=== PATIENT | female | born 1945 | race Caucasian/White ===

== ENCOUNTER 2018-04-29 12:17 | Emergency (ER) | payer OTHER, MEDICARE, BC ==
[~2018-04-29] VITALS: Ht 160 cm; Wt 83.0 kg
[~2018-04-29 12:17] MED LIST: ACET500 PO; ASCO1ER PO; ASPI81CH PO; ASPI81EC PO; ASPIRIN; CHOL10002 PO; DOCU100 PO; EFFEXOR-XR; FERROUS SULFATE PO; FISH OIL PO; FURO20 PO; INSDET100 SC; INSDET100 SQ; INSUAS7030 SC; INSUASPI; INSUASPI SC; IRON; IRON PO; LAMICTAL; LAMO100 PO; LAMOTRIGINE OD100 MG PO; LEVEMIR INSULIN; LEVOTHYROXINE; LEVSOD100 PO; LEVSOD112 PO; LEVSOD200 PO; LEVSOD88 PO; LISI5 PO; LISINOPRIL; LISINOPRIL PO; LOVAZA; Lamictal150 MG PO; METF500 PO; METFORMIN; METO25ER PO; MULVITA PO; Metoprolol Succ25 MG PO; NAPR220 PO; NAPROXEN; NOVOLOG INSULIN; Novolog Fl100 UNIT/1 SC; OLAN10 PO; OMEG1CAP30 PO; OMEP20ER PO; OMEPRAZOLE MAGN20 MG PO; OXYACE5T PO; PIOG30 PO; PRAV20 PO; RAME8; RAME8 PO; TYLENOL PO; VENL75ER PO; VITAMIN D; VITAMIN D PO; VITAMIN D32000 UNIT PO; [UNRECOGNIZED DRUG - OTHER]; [UNRECOGNIZED DRUG - OTHER] PO
[2018-04-29 14:10] LABS: BASOPHILS ABSOLUTE AUTO 0.03 K/mm3 (0.00-0.23); BASOPHILS PERCENT AUTO 0 % (0-2); EOSINOPHILS ABSOLUTE AUTO 0.26 K/mm3 (0.00-0.68); EOSINOPHILS PERCENT AUTO 4 % (0-6); Hematocrit 32.9 % (33.0-51.0); Hemoglobin 10.8 g/dL (11.5-16.0); IMMATURE GRAN ABSOLUTE AUTO 0.04 K/mm3 (0.00-0.10); IMMATURE GRAN PERCENT AUTO 1 % (0-1); LYMPHOCYTES ABSOLUTE AUTO 1.24 K/mm3 (0.84-5.20); LYMPHOCYTES PERCENT AUTO 18 % (21-46); MONOCYTES ABSOLUTE AUTO 0.31 K/mm3 (0.16-1.47); MONOCYTES PERCENT AUTO 5 % (4-13); Mean Corpuscular HGB 33.3 pg (26.0-34.0); Mean Corpuscular HGB Conc 32.8 g/dL (31.5-36.5); Mean Corpuscular Volume 102 fL (80-100); NEUTROPHILS ABSOLUTE AUTO 5.05 K/mm3 (1.96-9.15); NEUTROPHILS PERCENT AUTO 73 % (41-73); Platelet Count 87 K/mm3 (150-400); RDW Coefficient Variation 13.1 % (11.7-14.2); RDW Standard Deviation 48.9 fL (35.1-46.3); Red Blood Cell Count 3.24 M/mm3 (3.80-5.20); White Blood Cell Count 6.93 K/mm3 (4.00-11.30)
[2018-04-29 14:17] LABS: International Normalized Ratio 1.18
[2018-04-29 14:27] LABS: Alanine Aminotransfer (ALT/SGP 32 U/L (12-78); Albumin, Blood 2.9 g/dL (3.4-5.0); Albumin/Globulin Ratio 0.9 (0.8-1.8); Alk Phos 126 U/L (50-136); Anion Gap 6 mmol/L (6-16); Aspartate Aminotrans (AST/SGOT 41 U/L (12-37); Bilirubin, Total 0.8 mg/dL (0.1-1.0); Blood Urea Nitrogen 16 mg/dL (8-24); Bun/Creatinine Ratio 21.2 (12.0-20.0); CO2, Blood 28 mmol/L (21-32); Calcium, Blood 8.6 mg/dL (8.5-10.1); Chloride, Blood 109 mmol/L (98-108); Creatinine, Blood 0.76 mg/dL (0.40-1.00); Globulin, Blood 3.4 g/dL (2.2-4.0); Glomerular Filtration Rate >60 (60-); Glucose, Blood 81 mg/dL (70-99); Potassium, Blood 3.8 mmol/L (3.5-5.5); Sodium, Blood 143 mmol/L (136-145); Total Protein, Blood 6.3 g/dL (6.4-8.2)
== END 2018-04-29 15:35 | disposition home or self-care (01) ==
LOC: ER 12:17
PROVIDERS: Emergency Medicine
DX: S09.90XA Unspecified injury of head, initial encounter (principal); S20.212A Contusion of left front wall of thorax, initial encounter; E11.40 Type 2 diabetes mellitus with diabetic neuropathy, unspecified; E03.9 Hypothyroidism, unspecified; F31.9 Bipolar disorder, unspecified; J45.909 Unspecified asthma, uncomplicated; I10 Essential (primary) hypertension; G47.30 Sleep apnea, unspecified; M19.90 Unspecified osteoarthritis, unspecified site; Z88.8 Allergy status to other drugs, medicaments and biological substances; Z79.4 Long term (current) use of insulin; Z79.899 Other long term (current) drug therapy; V47.5XXA Car driver injured in collision with fixed or stationary object in traffic accident, initial encounter
CPT/HCPCS: 70450; 71046; 80053; 85025; 85610; 93005; 93010; 99285-25

== ENCOUNTER 2019-04-19 11:40 | Emergency (ER) | payer MEDICARE, BC ==
[~2019-04-19] VITALS: Ht 160 cm; Wt 76.7 kg
[2019-04-19] MEDS ORDERED: Norco 5-325 Ta1 EACH PO (13:29)
== END 2019-04-19 13:37 | disposition home or self-care (01) ==
LOC: ER 11:40
DX: S70.02XA Contusion of left hip, initial encounter (principal); E11.40 Type 2 diabetes mellitus with diabetic neuropathy, unspecified; I10 Essential (primary) hypertension; E03.9 Hypothyroidism, unspecified; F31.9 Bipolar disorder, unspecified; J45.909 Unspecified asthma, uncomplicated; Z88.8 Allergy status to other drugs, medicaments and biological substances; Z79.899 Other long term (current) drug therapy; Z79.4 Long term (current) use of insulin; Z79.82 Long term (current) use of aspirin; W18.30XA Fall on same level, unspecified, initial encounter
CPT/HCPCS: 73502; 99283-25

== ENCOUNTER 2021-09-01 21:08 | Emergency (ER) | payer MEDICARE, BC ==
[~2021-09-01] VITALS: Ht 160 cm; Wt 53.5 kg
[~2021-09-01 21:08] MED LIST changes: +Norco 5-325 Ta1 EACH PO
[2021-09-01 22:03] LABS: BASOPHILS ABSOLUTE AUTO 0.03 K/mm3 (0.00-0.23); BASOPHILS PERCENT AUTO 1 % (0-2); EOSINOPHILS PERCENT AUTO 3 % (0-6); Hematocrit 32.3 % (33.0-51.0); IMMATURE GRAN ABSOLUTE AUTO 0.01 K/mm3 (0.00-0.10); IMMATURE GRAN PERCENT AUTO 0 % (0-1); LYMPHOCYTES ABSOLUTE AUTO 0.65 K/mm3 (0.84-5.20); LYMPHOCYTES PERCENT AUTO 21 % (21-46); MONOCYTES ABSOLUTE AUTO 0.16 K/mm3 (0.16-1.47); MONOCYTES PERCENT AUTO 5 % (4-13); Mean Corpuscular HGB 34.5 pg (26.0-34.0); Mean Corpuscular HGB Conc 34.1 g/dL (31.5-36.5); Mean Corpuscular Volume 101 fL (80-100); Mean Platelet Volume 11.9 fL (9.1-12.4); NEUTROPHILS ABSOLUTE AUTO 2.12 K/mm3 (1.96-9.15); NEUTROPHILS PERCENT AUTO 69 % (41-73); Platelet Count 52 K/mm3 (150-400); RDW Coefficient Variation 13.3 % (11.7-14.2); RDW Standard Deviation 49.6 fL (35.1-46.3); Red Blood Cell Count 3.19 M/mm3 (3.80-5.20); White Blood Cell Count 3.07 K/mm3 (4.00-11.30)
[2021-09-01 22:21] LABS: Albumin, Blood 3.1 g/dL (3.4-5.0); Bilirubin, Total 0.9 mg/dL (0.1-1.0); Bun/Creatinine Ratio 27.3 (12.0-20.0); Calcium, Blood 8.6 mg/dL (8.5-10.1); Creatinine, Blood 0.81 mg/dL (0.40-1.00); Globulin, Blood 3.2 g/dL (2.2-4.0); Magnesium, Blood 1.1 mg/dL (1.6-2.4); Potassium, Blood 4.1 mmol/L (3.5-5.5); Total Protein, Blood 6.3 g/dL (6.4-8.2)
[2021-09-02 00:08] LABS: Source, Urine Clean Catch
[2021-09-02 00:11] LABS: Bilirubin, Urine Neg (Neg); Blood, Urine Neg (Neg); Glucose Qualitative, Urine Neg (Neg); Ketones, Urine Neg (Neg); Leukocyte Esterase, Urine 3+ (Neg); Nitrite, Urine Neg (Neg); Protein, Urine 1+ (Neg); Specific Gravity, Urine 1.005 (1.003-1.022); Urobilinogen, Urine NORM (Normal)
[2021-09-02 00:16] LABS: Appearance, Urine Clear (Clear); Color, Urine Yellow (P-Yellow)
[2021-09-02 00:26] LABS: Amorphous Light (0-Heavy); Bacteria Few /hpf; Red Blood Cells, Urine Not Seen /hpf (0-2); Squamous Epithelial Cells Few /hpf (Few)
[2021-09-02] MEDS ORDERED: CEFD300 PO ×2 (00:47→01:05)
== END 2021-09-02 01:14 | disposition home or self-care (01) ==
LOC: ER 21:08
PROVIDERS: Student in an Organized Health Care Education/Training Program
DX: A08.4 Viral intestinal infection, unspecified (principal); N39.0 Urinary tract infection, site not specified; E83.42 Hypomagnesemia; E03.9 Hypothyroidism, unspecified; F32.A Depression, unspecified; J45.909 Unspecified asthma, uncomplicated; E11.42 Type 2 diabetes mellitus with diabetic polyneuropathy; I10 Essential (primary) hypertension; Z79.4 Long term (current) use of insulin; Z79.82 Long term (current) use of aspirin; Z79.899 Other long term (current) drug therapy; Z88.8 Allergy status to other drugs, medicaments and biological substances
CPT/HCPCS: 36415; 80053; 81001; 82140; 82947; 83735; 85025; 93005; 93010; A9270; J3475; J7030

== ENCOUNTER 2022-05-14 22:37 | Emergency (ER) | payer MEDICARE, BC ==
[~2022-05-14] VITALS: Ht 160 cm; Wt 77.1 kg
[~2022-05-14 22:37] MED LIST changes: +CEFD300 PO
[2022-05-15] MEDS ORDERED: Morphine Sulfat15 MG PO (02:40)
== END 2022-05-15 03:20 | disposition home or self-care (01) ==
LOC: ER 22:37
DX: M25.551 Pain in right hip (principal); W19.XXXA Unspecified fall, initial encounter; I10 Essential (primary) hypertension; E03.9 Hypothyroidism, unspecified; J45.909 Unspecified asthma, uncomplicated; E11.40 Type 2 diabetes mellitus with diabetic neuropathy, unspecified; Z96.641 Presence of right artificial hip joint; Z88.8 Allergy status to other drugs, medicaments and biological substances; Z79.899 Other long term (current) drug therapy; Z79.4 Long term (current) use of insulin
CPT/HCPCS: 72192; 73502; 96372; 99284-25; A9270; J1885

== ENCOUNTER → 2022-07-12 | Outpatient (CLI) | payer MEDICARE, BC ==
[~2022-07-12] MED LIST changes: +Morphine Sulfat15 MG PO
[2022-07-12 15:09] LABS: Source, Urine Clean Catch
[2022-07-12 16:51] LABS: Appearance, Urine Clear (Clear); Bilirubin, Urine Neg (Neg); Blood, Urine Neg (Neg); Color, Urine Yellow (P-Yellow); Glucose Qualitative, Urine Neg (Neg); Ketones, Urine Neg (Neg); Leukocyte Esterase, Urine Neg (Neg); Nitrite, Urine Neg (Neg); Protein, Urine 2+ (Neg); Specific Gravity, Urine 1.005 (1.003-1.022); Urobilinogen, Urine NORM (Normal)
[2022-07-12 17:02] LABS: Bacteria Few /hpf; Red Blood Cells, Urine 0-2 /hpf (0-2); Squamous Epithelial Cells Mod /hpf (Few); Transitional Epithelial Cells Rare /hpf (0-Rare)
== END | disposition home or self-care (01) ==
LOC: LAB SHORT 15:05 → LAB 15:05 → LAB FUT 07-11 12:50
PROVIDERS: Internal Medicine
DX: N39.0 Urinary tract infection, site not specified (principal)
CPT/HCPCS: 81001

== ENCOUNTER 2022-11-04 09:27 | Inpatient (IN) | payer MEDICARE, BC ==
[~2022-11-04] VITALS: Ht 160 cm; Wt 69.8 kg
[2022-11-04 10:19] LABS: Hemoglobin 9.7 g/dL (11.5-16.0); Mean Corpuscular HGB 32.3 pg (26.0-34.0); Mean Corpuscular HGB Conc 32.3 g/dL (31.5-36.5); Mean Corpuscular Volume 100 fL (80-100); Mean Platelet Volume 12.6 fL (9.1-12.4); RDW Coefficient Variation 14.9 % (11.7-14.2); RDW Standard Deviation 53.7 fL (35.1-46.3); White Blood Cell Count 1.61 K/mm3 (4.00-11.30)
[2022-11-04 10:23] LABS: Platelet Count 50 K/mm3 (150-400)
[2022-11-04 10:37] LABS: Albumin, Blood 2.8 g/dL (3.4-5.0); Albumin/Globulin Ratio 0.7 (0.8-1.8); Bilirubin, Total 1.4 mg/dL (0.1-1.0); Bun/Creatinine Ratio 25.9 (12.0-20.0); Calcium, Blood 8.8 mg/dL (8.5-10.1); Creatinine, Blood 1.66 mg/dL (0.40-1.00); Globulin, Blood 3.9 g/dL (2.2-4.0); Potassium, Blood 4.2 mmol/L (3.5-5.5); Total Protein, Blood 6.7 g/dL (6.4-8.2)
[2022-11-04 10:53] LABS: Source, Urine Clean Catch
[2022-11-04 11:02] LABS: Appearance, Urine Hazy (Clear); Blood, Urine 3+ (Neg); Color, Urine Yellow (P-Yellow); Glucose Qualitative, Urine Neg (Neg); Ketones, Urine 1+ (Neg); Leukocyte Esterase, Urine 1+ (Neg); Nitrite, Urine Neg (Neg); Protein, Urine 3+ (Neg); Specific Gravity, Urine 1.015 (1.003-1.022); Urobilinogen, Urine 1+ (Normal)
[2022-11-04 11:16] LABS: Bilirubin, Urine 1+ (Neg)
[2022-11-04 11:18] LABS: Amorphous Mod (0-Heavy); Bacteria Rare /hpf; Mucus Light (0-Heavy); Squamous Epithelial Cells Rare /hpf (Few)
[2022-11-04 11:30] LABS: BAND PERCENT MAN 38 % (0-8); BASOPHILS PERCENT MAN 0 % (0-2); EOSINOPHILS PERCENT MAN 0 % (0-6); LYMPHOCYTES % ATYPICAL MANUAL 1 % (0-0); LYMPHOCYTES ABSOLUTE MAN 0.33 K/mm3 (0.84-5.20); LYMPHOCYTES PERCENT MAN 20 % (21-46); MONOCYTES ABSOLUTE MAN 0.06 K/mm3 (0.16-1.47); MONOCYTES PERCENT MAN 4 % (4-13); SEG NEUTROPHILS PERCENT MAN 37 % (41-73); TOTAL CELLS COUNTED 100
[2022-11-04 11:41] LABS: Influenza A, PCR NEGATIVE (NEGATIVE); Influenza B, PCR NEGATIVE (NEGATIVE); Resp Syncytial Virus, PCR NEGATIVE (NEGATIVE); SARS-Cov-2 (COVID-19) PCR, MMC NEGATIVE (NEGATIVE)
[2022-11-04] MEDS ORDERED: XIFAXAN550 MG PO (12:53)
[2022-11-04] MEDS ORDERED: OMEP20ER PO (12:54)
[2022-11-04 13:00] LABS: Base Excess Venous -6.1 mmol/L; Bicarbonate Venous 19.4 mmol/L (24.0-30.0); PCO2 Venous 43.4 mmHg (38-42); pH Blood Venous 7.28 (7.34-7.37)
[2022-11-04 13:57] LABS: International Normalized Ratio 1.75; Prothrombin Time Results 17.8 Sec (9.7-11.5)
[2022-11-04 14:08] LABS: Free Thyroxine 1.3 ng/dL (0.70-1.60)
[2022-11-04 14:10] LABS: Thyroid Stimulating Hormone 4.87 uIU/mL (0.360-4.800)
[2022-11-04 14:49] VITALS: BP 148/68
[2022-11-04 15:00] VITALS: BP 162/72
--- NOTE | 2022-11-04 15:00 | NUR ---
Received report from THIRD SHIFT LIEUTENANT. Patient transported on [facility] with monitor. She was alert and oriented on arrival and was able to answer all but year question and family stated that was normal. She is on RA and sats >90%. She has attends place. at bedside and allows her to answer most questions. Able to move all extremities, weaker LE's bilaterally. VSS see EMR.
[2022-11-04 15:30] VITALS: BP 148/61
[2022-11-04 17:43] VITALS: BP 152/70
[2022-11-04 19:35] VITALS: BP 152/80
--- NOTE | 2022-11-04 20:30 | NUR ---
PHYSICIAN TO BEDSIDE CB. PT AROUSABLE AND AMSWERING QUESIONS APPROPRIATELY. AMP OF D50 ADMINISTERED. REPEAT CB. SpO2 TRENDING DOWN, PT WAS SATTING 94-96% ON RA, NOW SATTING 89-90% RA WITH INCREASED RR AND WORK OF BREATHING. SpO2> 92% 2L VIA NC. DISCUSSED BNP AND pH LEVEL, INSTRUCTIONS TO DC FLUID ORDER AND CPAP ORDERED PER PHYSICIAN.
[2022-11-04 20:46] LABS: Base Excess Venous -6.8 mmol/L; Bicarbonate Venous 19.1 mmol/L (24.0-30.0); PCO2 Venous 39.9 mmHg (38-42)
[2022-11-04 20:57] LABS: Bun/Creatinine Ratio 34.1 (12.0-20.0); Calcium, Blood 8.6 mg/dL (8.5-10.1); Creatinine, Blood 1.23 mg/dL (0.40-1.00); Potassium, Blood 4.3 mmol/L (3.5-5.5)
[2022-11-04 23:00] VITALS: BP 133/105
[2022-11-05] VITALS (7 sets, daily range): BP systolic 116–144; BP diastolic 54–77
--- NOTE | 2022-11-05 00:35 | NUR ---
SAFETY & EDUCATION PT & FAMILY EDUCATED RE: IGNITION SOURCES AND RISK OF INJURY WHILE OXYGEN IS IN USE. PT DENIES SMOKING AND PT & FAMILY VERBALIZE UNDERSTANDING.
[2022-11-05 01:14] LABS: Hematocrit 27.7 % (33.0-51.0); Hemoglobin 9.2 g/dL (11.5-16.0); Mean Corpuscular HGB 32.3 pg (26.0-34.0); Mean Corpuscular HGB Conc 33.2 g/dL (31.5-36.5); Mean Corpuscular Volume 97 fL (80-100); Mean Platelet Volume 12.2 fL (9.1-12.4); Platelet Count 51 K/mm3 (150-400); RDW Standard Deviation 53.9 fL (35.1-46.3); Red Blood Cell Count 2.85 M/mm3 (3.80-5.20); White Blood Cell Count 1.08 K/mm3 (4.00-11.30)
[2022-11-05 01:55] LABS: BAND PERCENT MAN 18 % (0-8); BASOPHILS PERCENT MAN 0 % (0-2); EOSINOPHILS ABSOLUTE MAN 0.02 K/mm3 (0.00-0.68); EOSINOPHILS PERCENT MAN 2 % (0-6); LYMPHOCYTES % ATYPICAL MANUAL 2 % (0-0); LYMPHOCYTES PERCENT MAN 26 % (21-46); METAMYELOCYTE ABSOLUTE MAN 0.04 K/mm3 (0.00-0.00); METAMYELOCYTE PERCENT MAN 4 % (0-0); MONOCYTES PERCENT MAN 10 % (4-13); SEG NEUTROPHILS PERCENT MAN 38 % (41-73); TOTAL CELLS COUNTED 50
[2022-11-05 02:04] LABS: Anion Gap 10 mmol/L (6-16); Blood Urea Nitrogen 44 mg/dL (8-24); Bun/Creatinine Ratio 34.1 (12.0-20.0); CHOL/HDL RATIO 5.3; CO2, Blood 20 mmol/L (21-32); Calcium, Blood 8.5 mg/dL (8.5-10.1); Chloride, Blood 107 mmol/L (98-108); Cholesterol 122 mg/dL (50-200); Creatinine, Blood 1.29 mg/dL (0.40-1.00); Glomerular Filtration Rate 43 (60-); Glucose, Blood 116 mg/dL (70-99); HDL Cholesterol 23 mg/dL (>39); LDL/HDL RATIO 3.1; Low Density Lipoprotein Chol 72 mg/dL (0-110); Potassium, Blood 4.4 mmol/L (3.5-5.5); Sodium, Blood 137 mmol/L (136-145); Triglycerides 134 mg/dL (30-160); Very Low Density Lipoprot Chol 26 mg/dL (6-32)
--- NOTE | 2022-11-05 02:30 | NUR ---
PHYSICIAN TO BEDSIDE HR CHANGE FROM 80's TO SUSTAINING 140's WITH ELEVATED ST ALARMS ON TELE. EKG DONE, PHYSICIAN NOTIFIED. BP STABLE, DENIES CP/PRESSURE. DISCUSSED PLAN OF CARE WITH PHYSICIAN, ORDERS PLACED. EKG DONE. TROPONIN ORDERED. IV LOPRESSOR ADMINSITERED.
--- NOTE | 2022-11-05 05:21 | NUR ---
SHIFT SUMMARY SEE PREVIOUS NOTES. PT A&Ox3, HAS MOMENTS OF CONFUSION BUT IS EASILY REORIENTED. PT DOES NOT USE CALL LIGHT BUT DOES NOT TRY TO GET OOB. COMMUNICATES NEEDS APPROPRIATELY. BP STABLE, DENIES CP/PRESSURE. PT's HR BACK IN 80's, SINUS. SpO2> 92% RA-2L VIA NC WHILE AWAKE, CPAP WHILE ASLEEP. NO OTHER EVENTS, WILL RPORT TO ONCOMING RN.
[2022-11-05] MEDS ORDERED: MELATONIN5 M1 PO (08:13)
[2022-11-05] MEDS ORDERED: Acetaminophen650 M1 PO (08:13)
[2022-11-05 08:45] LABS: Base Excess Venous -3.2 mmol/L; Bicarbonate Venous 21.8 mmol/L (24.0-30.0); PCO2 Venous 38.3 mmHg (38-42); pH Blood Venous 7.37 (7.34-7.37)
--- NOTE | 2022-11-05 10:50 | NUR ---
CARE NOTE AT APPROX. 1015 THIS NURSE WAS NOTIFIED THAT PT HAD A MINUTE LONG EPISODE OF APNEA W/ SPO2 AT 55%, RON MAGALLANES RN AND ADELAIDE RAY RN WERE AT BEDSIDE. THIS NURSE PLACED CPAP ON PT AND DR. CEDILLO MADE AWARE. CBG WAS NOTED TO BE ELEVATED AT 183, BP AND HR STABLE. WILL CONTINUE TO MONITOR. CALL LIGHT IN REACH AND BED ALARM ON.
--- NOTE | 2022-11-05 16:54 | NUR ---
SHIFT SUMMARY PT HAS BEEN SOMNOLENT DURING SHIFT. SHE WAKES TO VERBAL STIMULI AND IS ORIENTED TO SELF, PLACE AND FAMILY. BP AND HR STABLE, PLEASE SEE PREVIOUSE NOTE REGARDING EPISODE OF APNEA. SPO2 HAS BEEN MAINTAINED >95% MOSTLY VIA CPAP W/ 2-3L BLEED DUE TO PT SLEEPING FOR MAJORITY OF SHIFT. WHEN SHE IS AWAKE SPO2 MAINTAINED >95% VIA 2L NC. SHE HAS NOT REPORTED PAIN BUT APPEARS PAINFUL WHEN REPOSITIONING SHE CRIES OUT "OW OW," AND "OH" BUT CANNOT STATE WHERE PAIN IS COMING FROM. SHE GOT UP TO EDGE OF BED TO STAND W/ PHYSICAL THERAPY. PW DEVICE HAS BEEN IN PLACE AND CONNECTED TO SUCTION FOR PT TO VOID. NO COUGH NOTED. IV IN R AC IS SALINE LOCKED. SHE DID HAVE 1 LOOSE BM TODAY. DAUGHTER IN LAW RICCARDO HAS BEEN AT BEDSIDE WELL OTHER FAMILY MEMBERS. PT HAS HAD MINIMAL PO INTAKE AND NEEDS MUCH ENCOURAGEMENT TO EAT. WILL CONTINUE TO MONITOR AND REPORT TO ONCOMING RN. CALL LIGHT IS W/IN REACH, BED ALARM ON.
[2022-11-06 03:50] VITALS: BP 121/63
--- NOTE | 2022-11-06 04:22 | NUR ---
SHIFT SUMMARY PATIENT IS LETHARGIC, RESPONDS TO VERBAL STIMULI. ORIENTED X SELF AND FOLLOWING COMMANDS. 02 SATS >95% ON CPAP WITH 2L 02. PATIENT WORE CPAP THROUGH THE NIGHT. HR SR 80s, BP STABLE. PUREWICK IN PLACE. Q2 HOUR TURNS. ABLE TO GET PATIENT TO EAT SOME OF HER DINNER AT START OF SHIFT. CHECKED CBG AT APPROX 0245 DUE TO BEING LETHARGIC, CBG 137. CALL LIGHT IN REACH
[2022-11-06 04:27] LABS: Hematocrit 25.4 % (33.0-51.0); Hemoglobin 8.4 g/dL (11.5-16.0); Mean Corpuscular HGB 31.9 pg (26.0-34.0); Mean Corpuscular HGB Conc 33.1 g/dL (31.5-36.5); Mean Corpuscular Volume 97 fL (80-100); Mean Platelet Volume 12.8 fL (9.1-12.4); RDW Coefficient Variation 15.4 % (11.7-14.2); RDW Standard Deviation 54.6 fL (35.1-46.3); Red Blood Cell Count 2.63 M/mm3 (3.80-5.20); White Blood Cell Count 2.44 K/mm3 (4.00-11.30)
[2022-11-06 04:47] LABS: Platelet Count 40 K/mm3 (150-400)
--- NOTE | 2022-11-06 05:01 | NUR ---
IGNITION RISK ASSESSED THIS SHIFT. PATIENT UNABLE TO PARTICIPATE. NO RISK AT THIS TIME
[2022-11-06 05:10] LABS: BAND PERCENT MAN 5 % (0-8); BASOPHILS PERCENT MAN 0 % (0-2); EOSINOPHILS PERCENT MAN 0 % (0-6); LYMPHOCYTES ABSOLUTE MAN 0.39 K/mm3 (0.84-5.20); LYMPHOCYTES PERCENT MAN 16 % (21-46); MONOCYTES ABSOLUTE MAN 0.12 K/mm3 (0.16-1.47); MONOCYTES PERCENT MAN 5 % (4-13); MYELOCYTE ABSOLUTE MAN 0.02 K/mm3 (0.00-0.00); MYELOCYTE PERCENT MAN 1 % (0-0); SEG NEUTROPHILS PERCENT MAN 73 % (41-73); TOTAL CELLS COUNTED 100
[2022-11-06 06:53] LABS: Albumin, Blood 1.8 g/dL (3.4-5.0); Anion Gap 10 mmol/L (6-16); Blood Urea Nitrogen 49 mg/dL (8-24); Bun/Creatinine Ratio 43.8 (12.0-20.0); CO2, Blood 22 mmol/L (21-32); Chloride, Blood 110 mmol/L (98-108); Creatinine, Blood 1.12 mg/dL (0.40-1.00); Glomerular Filtration Rate 51 (60-); Glucose, Blood 137 mg/dL (70-99); Phosphorus, Blood 2.6 mg/dL (2.5-4.9); Potassium, Blood 3.9 mmol/L (3.5-5.5); Sodium, Blood 142 mmol/L (136-145)
[2022-11-06 07:12] LABS: IRON BIND.CAP.(TIBC) 280 ug/dL (250-450); IRON SATURATION 5 % (15-55); IRON, SERUM 15 ug/dL (27-139); UIBC 265 ug/dL (118-369)
[2022-11-06 07:24] VITALS: BP 137/56
[2022-11-06 08:33] LABS: Base Excess Venous -1.9 mmol/L; PCO2 Venous 37.1 mmHg (38-42)
[2022-11-06 09:10] LABS: FERRITIN 139 ng/mL (15-150)
--- NOTE | 2022-11-06 09:10 | NUR ---
ASSUMED CARE: ASSUMED CARE OF PT APPROX 0715. PT SOMNELENT THIS AM BUT AWOKEN WITH VERBAL STIMULI. ABLE TO SIT UP IN BED AND RESPOND TO QUESTIONS APPROPRIATELY. A&OX3. BP STABLE. HR 90'S. SPO2 100% ON 2L O2 VIA N/C. PT TITRATED TO RA WITH SPO2 >92%. PT DENIES CP/PRESSURE. PUREWICK IN PLACE. CALL LIGHT WITHIN REACH. NO FURTHER NEEDS AT THIS TIME. BED ALARM ON.
[2022-11-06 11:30] VITALS: BP 111/55
--- NOTE | 2022-11-06 13:39 | NUR ---
Lactic acid still elevated. Pt has been drinking a lot of water this morning; will continue to encourage po fluids.
[2022-11-06 14:48] VITALS: BP 117/103
--- NOTE | 2022-11-06 18:29 | NUR ---
SHIFT SUMMARY: PT A&OX3 AND ABLE TO FOLLOW COMMANDS. SPO2 >93% ON RA, DENIES SOB. CPAP WHILE SLEEPING. HR SR MOSTLY 80-90'S. SBP 110-130'S, DENIES CP/PRESSURE. PUREWICK IN PLACE DRAINING MELBA COLORED URINE. 1 INCONTINENT BM THIS SHIFT. Q2 TURNS THROUGHOUT SHIFT. PT ABLE TO TOLERATE MECH SOFT DIET AND LIQUIDS WITHOUT NOTICEABLE DIFFICULTY. PT AND FAMILY EDUCATED ON IGNITION SOURCES AND RISK OF INJURY WITH IGNITION WHILE O2 IN USE. PT AND FAMILY VERBALIZED UNDERSTANDING. PT UP TO CHAIR FOR DINNER WITH LIFT. NO FURTHER NEEDS AT THIS TIME, CALL LIGHT WITHIN REACH. WILL REPORT TO ONCOMING RN.
[2022-11-06 21:10] LABS: HEMOGLOBIN A1C 8.8 % (4.8-5.6)
[2022-11-06 21:25] VITALS: BP 106/56
[2022-11-06 23:52] VITALS: BP 113/57
[2022-11-07 04:50] LABS: Hematocrit 26.3 % (33.0-51.0); Hemoglobin 8.9 g/dL (11.5-16.0); Mean Corpuscular HGB 32.2 pg (26.0-34.0); Mean Corpuscular HGB Conc 33.8 g/dL (31.5-36.5); Mean Corpuscular Volume 95 fL (80-100); Mean Platelet Volume 12.8 fL (9.1-12.4); NRBC ABSOLUTE 0.05 K/mm3 (0.00-0.02); NRBC Auto 0.8 /100 WBC (0.0-0.2); RDW Coefficient Variation 15.4 % (11.7-14.2); RDW Standard Deviation 53.8 fL (35.1-46.3); Red Blood Cell Count 2.76 M/mm3 (3.80-5.20)
[2022-11-07 04:59] VITALS: BP 135/67
[2022-11-07 05:10] LABS: Platelet Count 45 K/mm3 (150-400)
[2022-11-07 05:25] LABS: Albumin, Blood 1.9 g/dL (3.4-5.0); Anion Gap 12 mmol/L (6-16); Blood Urea Nitrogen 52 mg/dL (8-24); Bun/Creatinine Ratio 53.3 (12.0-20.0); CO2, Blood 20 mmol/L (21-32); Calcium, Blood 8.1 mg/dL (8.5-10.1); Chloride, Blood 103 mmol/L (98-108); Creatinine, Blood 0.98 mg/dL (0.40-1.00); Glomerular Filtration Rate 59 (60-); Glucose, Blood 167 mg/dL (70-99); Phosphorus, Blood 2.3 mg/dL (2.5-4.9); Potassium, Blood 3.7 mmol/L (3.5-5.5); Sodium, Blood 135 mmol/L (136-145)
[2022-11-07 05:34] LABS: BAND PERCENT MAN 3 % (0-8); BASOPHILS PERCENT MAN 0 % (0-2); EOSINOPHILS ABSOLUTE MAN 0.12 K/mm3 (0.00-0.68); EOSINOPHILS PERCENT MAN 2 % (0-6); LYMPHOCYTES ABSOLUTE MAN 0.66 K/mm3 (0.84-5.20); LYMPHOCYTES PERCENT MAN 11 % (21-46); MONOCYTES ABSOLUTE MAN 0.12 K/mm3 (0.16-1.47); MONOCYTES PERCENT MAN 2 % (4-13); MYELOCYTE ABSOLUTE MAN 0.06 K/mm3 (0.00-0.00); MYELOCYTE PERCENT MAN 1 % (0-0); NEUTROPHILS ABSOLUTE MAN 5.04 K/mm3 (1.96-9.15); SEG NEUTROPHILS PERCENT MAN 81 % (41-73); TOTAL CELLS COUNTED 100
--- NOTE | 2022-11-07 06:51 | NUR ---
SHIFT SUMMARY PATIENT ALERT AND ORIENTED X 2-3, PLEASANTLY CONFUSED AND OCCASIONALLY PULLS CORDS OFF, ABLE TO BE REDIRECTED. PATIENT HAD NO COMPLAINTS OF PAIN OR SHORTNESS OF BREATH. WORE CPAP WHILE SLEEPING, VITAL SIGNS STABLE. NO ACUTE ISSUES NOTED OVERNIGHT. PATIENT EDUCATED ON FIRE SAFETY AND IGNITION SOURCES IN THE HOSPITAL. WILL CONTINUE TO MONITOR. CALL LIGHT WITHIN REACH.
[2022-11-07 07:25] VITALS: BP 146/63
[2022-11-07 08:13] LABS: FERRITIN 116 ng/mL (15-150)
--- NOTE | 2022-11-07 09:19 | NUR ---
ASSUMED CARE: ASSUMED CARE OF PT APPROX 0715. PT RESTING IN BED WITH CPAP ON. SPO2 >95% ON 2L. HR 90'S, BP STABLE. PT DENIES CP/PRESSURE. ATTENDS CLEAN. CALL LIGHT WITHIN REACH.
--- NOTE | 2022-11-07 10:32 | NUR ---
noted blistering and increased redness, warmth, tenderness and swelling of the right thigh. Dr. Sanchez notified, and she came to assess it in person. New orders anticipated. Contact isolation initiated in case of positive herpes.
--- NOTE | 2022-11-07 11:16 | NUR ---
PT EDUCATION: PT EDUCATED REGARDING IGITION SOURCES AND RISK OF INJURY WHILE O2 IN USE. PT VERBALIZES UNDERSTANDING.
[2022-11-07 11:28] VITALS: BP 122/64
--- NOTE | 2022-11-07 12:23 | NUR ---
UPDATE: SPOKE WITH [id number], RICCARDO. UPDATED ON CHANGE FROM PCU TO MEDICAL STATUS. DISCUSSED NEW HERPES LESIONS AND ACYCLOVIR. EDUCATED ON CONTACT PRECAUTIONS. DISCUSSED PLAN AND WILL UPDATE WITH FURTHER INFORMATION INDICATED.
--- NOTE | 2022-11-07 13:27 | NUR ---
Brief supportive visit this afternoon. Pt sitting in chair eating her lunch. Pt appears lethargic and weak. Difficult to assess Pt's orientation as she does not answer orientation questions. She does appear confused. No S/S of distress at this time. Ended visit to allow Pt to finish her lunch. Called and spoke with Pt's daughter Mary. Provided update and reviewed plan of care. Mary reports Pt was ambulating with a walker but now uses a wheel chair. Pt's spouse assists with most of her care. Pt does require occasionly assistance with bathing and dressing. Mary reports being with Pt's spouse who is recovering from surgery at [facility]. Engaged in therapeutic discussion regarding Pt's code status wishes. Educated on life sustaining treatments including risk factors and implications to CPR/Intubation. Mary reports plan to discuss further with family and requests this RN to call and relay information to her sister in law Yodit. Mary expresses appreciation and reports no other concerns at this time. Called and spoke with Yodit. Continued education and risks and implications to CPR/Intubation. Rosmery wonders if Pt has ever completed a POLST or AD before. Instructed this RN will call PCP office for AD/POLST. Rosmery expresses appreciation and family will discuss further and let staff know Pt's wishes for code status. Called Pt's PCP office and they report no POLST or AD on file. Palliative care will remain available
[2022-11-07 14:10] LABS: IRON BIND.CAP.(TIBC) 255 ug/dL (250-450); IRON SATURATION 7 % (15-55); IRON, SERUM 19 ug/dL (27-139); UIBC 236 ug/dL (118-369)
[2022-11-07 16:51] VITALS: BP 149/51
--- NOTE | 2022-11-07 17:37 | NUR ---
SHIFT SUMMARY: PT A&O X1-3, DISORIENTED IMMEDIATELY AFTER WAKING UP. ABLE TO FOLLOW MOST COMMANDS AND ANSWER QUESTIONS APPROPRIATELY. HR 70'S-90'S, SBP 120'S-140'S. DENIES CP/PRESSURE. TELE REMOVED TODAY PER ORDERS. SPO2 >95% ON RA, CPAP ON 2L WHILE SLEEPING WITH SPO2 >95%. PUREWICK IN PLACE DRAINING MELBA URINE. AIRBORNE PRECAUTIONS INITIATED R/T SHINGLES VESICLES ON RIGHT UPPER THIGH. ACYCLOVIR GIVEN PER EMAR FOR SHINGLES. PT REPOSITIONED FREQUENTLY. UP TO CHAIR THIS AM WITH LIFT. ANTICIPATING TRANSFER TO ROOM 335. NO FURTHER NEEDS AT THIS TIME, PT RESTING IN BED. CALL LIGHT WITHIN REACH. WILL REPORT TO ONCOMING RN.
--- NOTE | 2022-11-07 19:39 | NUR ---
PATIENT BEING TRANSFERRED TO ROOM 335. REPORT GIVEN TO MILA MITCHELL WHO IS TO ASSUME CARE OF THE PATIENT.
[2022-11-07 20:16] VITALS: BP 140/64
[2022-11-08 04:39] LABS: Hematocrit 26.5 % (33.0-51.0); Hemoglobin 8.8 g/dL (11.5-16.0); Mean Corpuscular HGB Conc 33.2 g/dL (31.5-36.5); Mean Corpuscular Volume 96 fL (80-100); Mean Platelet Volume 12.3 fL (9.1-12.4); NRBC ABSOLUTE 0.03 K/mm3 (0.00-0.02); NRBC Auto 0.3 /100 WBC (0.0-0.2); Platelet Count 51 K/mm3 (150-400); RDW Coefficient Variation 15.6 % (11.7-14.2); RDW Standard Deviation 54.8 fL (35.1-46.3); Red Blood Cell Count 2.75 M/mm3 (3.80-5.20); White Blood Cell Count 10.37 K/mm3 (4.00-11.30)
[2022-11-08 05:07] LABS: Albumin, Blood 1.8 g/dL (3.4-5.0); Anion Gap 9 mmol/L (6-16); Blood Urea Nitrogen 52 mg/dL (8-24); Bun/Creatinine Ratio 84.8 (12.0-20.0); CO2, Blood 23 mmol/L (21-32); Chloride, Blood 104 mmol/L (98-108); Creatinine, Blood 0.61 mg/dL (0.40-1.00); Glomerular Filtration Rate 92 (60-); Glucose, Blood 155 mg/dL (70-99); Phosphorus, Blood 3.4 mg/dL (2.5-4.9); Potassium, Blood 3.6 mmol/L (3.5-5.5); Sodium, Blood 136 mmol/L (136-145)
[2022-11-08 06:16] LABS: BAND PERCENT MAN 11 % (0-8); BASOPHILS PERCENT MAN 0 % (0-2); EOSINOPHILS PERCENT MAN 1 % (0-6); LYMPHOCYTES ABSOLUTE MAN 1.55 K/mm3 (0.84-5.20); LYMPHOCYTES PERCENT MAN 15 % (21-46); MONOCYTES ABSOLUTE MAN 0.31 K/mm3 (0.16-1.47); MONOCYTES PERCENT MAN 3 % (4-13); NEUTROPHILS ABSOLUTE MAN 8.39 K/mm3 (1.96-9.15); SEG NEUTROPHILS PERCENT MAN 70 % (41-73); TOTAL CELLS COUNTED 100
--- NOTE | 2022-11-08 06:37 | NUR ---
SHIFT SUMMARY PT IS A&O3, MILD CONFUSION TO TIME, LIFT PATIENT, RA, ON AIRBORNE CONTACT FOR SHINGLES TO THE GROIN AND RIGHT CALF, NO COMPLAINTS OF PAIN OVERNIGHT OR ACUTE OVERNIGHT EVENTS,FIRE SAFETY EDUCATION PROVIDED, CONTINUE POC
[2022-11-08 07:54] VITALS: BP 125/56
--- NOTE | 2022-11-08 11:02 | NUR ---
Case Conference Note Reviewed chart, discussed case with RN Clay, Primary RN Austyn, and ST Mcdonald. ST recommending mechanical soft diet with thin liquids without the use of Pt's dentures as they do not fit Pt. Pt recommended for SNF and RN Clay will speak with facilities. No new concerns reported at this time. Called and spoke with Pt's daughter in law Yodit. Provided update and reviewed plan of care. Yodit reports Pt's children have discussed Pt's code status wishes are agree Pt's wishes would be DNR but would still like to speak with Pt's spouse before making a decision. Pt's spouse still recovering at [facility] and remains drowsy. Palliative Care will remain available.
[2022-11-08] MEDS ORDERED: FOLI1 PO (14:40)
[2022-11-08] MEDS ORDERED: ACYC800 PO (14:40)
[2022-11-08] MEDS ORDERED: NOVOLIN R100 UNIT/2 SQ (14:48)
[2022-11-08 14:52] LABS: SARS-Cov-2 (COVID-19) PCR, MMC NEGATIVE (NEGATIVE)
--- NOTE | 2022-11-08 15:05 | NUR ---
REPORT CALLED TO LESLEY MOLINA, SPOKE WITH GASTON. PTS IV REMOVED WITH CATHETER TIP INTACT. AWAITING TRANSPORTATION, SCHEDULED FOR 1530 AT THIS TIME. WILL CONTINUE TO MONITOR.
== END 2022-11-08 15:52 | DRG 682 ==
LOC: ER 09:27 → PCU 11:48 → MEDS 11:48 → PCU 14:44 → MEDS 11-07 19:54
PROVIDERS: Emergency Medicine; Family Medicine; Student in an Organized Health Care Education/Training Program; ADMIT Hospitalist
PROC: 5A09357 Assistance with Respiratory Ventilation, Less than 24 Consecutive Hours, Continuous Positive Airway Pressure (ICD-10-PCS; principal; 2022-11-05)
DX: N17.9 Acute kidney failure, unspecified (principal); G92.8 Other toxic encephalopathy; I50.33 Acute on chronic diastolic (congestive) heart failure; D61.818 Other pancytopenia; N39.0 Urinary tract infection, site not specified; E87.4 Mixed disorder of acid-base balance; I13.0 Hypertensive heart and chronic kidney disease with heart failure and stage 1 through stage 4 chronic kidney disease, or unspecified chronic kidney disease; E87.1 Hypo-osmolality and hyponatremia; I24.8 Other forms of acute ischemic heart disease; E11.40 Type 2 diabetes mellitus with diabetic neuropathy, unspecified; E11.65 Type 2 diabetes mellitus with hyperglycemia; F03.90 Unspecified dementia, unspecified severity, without behavioral disturbance, psychotic disturbance, mood disturbance, and anxiety; J45.909 Unspecified asthma, uncomplicated; E03.9 Hypothyroidism, unspecified; M19.90 Unspecified osteoarthritis, unspecified site; F31.9 Bipolar disorder, unspecified; E86.0 Dehydration; G47.33 Obstructive sleep apnea (adult) (pediatric); E87.70 Fluid overload, unspecified; M48.00 Spinal stenosis, site unspecified; N18.9 Chronic kidney disease, unspecified; E83.39 Other disorders of phosphorus metabolism; G89.29 Other chronic pain; I27.20 Pulmonary hypertension, unspecified; K21.9 Gastro-esophageal reflux disease without esophagitis; Z20.822 Contact with and (suspected) exposure to COVID-19; E78.5 Hyperlipidemia, unspecified; R53.81 Other malaise; E11.649 Type 2 diabetes mellitus with hypoglycemia without coma; E11.22 Type 2 diabetes mellitus with diabetic chronic kidney disease; K70.30 Alcoholic cirrhosis of liver without ascites; E53.8 Deficiency of other specified B group vitamins; L40.8 Other psoriasis; B02.9 Zoster without complications; E88.09 Other disorders of plasma-protein metabolism, not elsewhere classified; I08.1 Rheumatic disorders of both mitral and tricuspid valves; Z96.641 Presence of right artificial hip joint; Z79.4 Long term (current) use of insulin; Z79.82 Long term (current) use of aspirin; Z90.710 Acquired absence of both cervix and uterus; Z98.890 Other specified postprocedural states; Z79.890 Hormone replacement therapy; Z99.3 Dependence on wheelchair; Z88.8 Allergy status to other drugs, medicaments and biological substances; Z79.899 Other long term (current) drug therapy; Z99.89 Dependence on other enabling machines and devices; Z79.84 Long term (current) use of oral hypoglycemic drugs
CPT/HCPCS: 0241U; 36415; 70450; 71045; 80048; 80053; 80061; 80069; 81001; 82140; 82607; 82728; 82746; 82803; 82947; 83036; 83540; 83550; 83605; 83880; 84439; 84443; 84484; 85025; 85610; 87086; 92526; 92610; 93005; 93010; 93306; 94660; 94760; 94762; 96360-59; 96361-59; 97110; 97162; 97166; 97530; 97535; 99285-25; A9270; J0696; J1815; J1940; J7120; P9612; U0002

== ENCOUNTER 2022-11-22 01:02 | Day surgery (SDC) | payer MEDICARE, BC ==
[~2022-11-22 01:02] MED LIST changes: +ACYC800 PO; +Acetaminophen650 M1 PO; +FOLI1 PO; +MELATONIN5 M1 PO; +NOVOLIN R100 UNIT/2 SQ; +XIFAXAN550 MG PO
[2022-11-22 10:20] VITALS: BP 114/55
== END 2022-11-22 10:45 | disposition home or self-care (01) ==
LOC: ATC 01:02
DX: N39.0 Urinary tract infection, site not specified (principal); R77.8 Other specified abnormalities of plasma proteins; R35.89 Other polyuria; R60.0 Localized edema; E11.40 Type 2 diabetes mellitus with diabetic neuropathy, unspecified; J45.909 Unspecified asthma, uncomplicated; I10 Essential (primary) hypertension; K74.60 Unspecified cirrhosis of liver; F31.9 Bipolar disorder, unspecified; E03.9 Hypothyroidism, unspecified; G47.33 Obstructive sleep apnea (adult) (pediatric); M19.90 Unspecified osteoarthritis, unspecified site; Z79.4 Long term (current) use of insulin; Z88.9 Allergy status to unspecified drugs, medicaments and biological substances; Z99.89 Dependence on other enabling machines and devices
CPT/HCPCS: 99213; C1751

== ENCOUNTER 2022-12-21 06:42 | Inpatient (IN) | payer MEDICARE, BC ==
[~2022-12-21] VITALS: Ht 167.6 cm; Wt 77.1 kg
[2022-12-21 07:06] LABS: BASOPHILS ABSOLUTE AUTO 0.06 K/mm3 (0.00-0.23); BASOPHILS PERCENT AUTO 1 % (0-2); EOSINOPHILS ABSOLUTE AUTO 0.22 K/mm3 (0.00-0.68); EOSINOPHILS PERCENT AUTO 3 % (0-6); Hematocrit 25.1 % (33.0-51.0); Hemoglobin 7.7 g/dL (11.5-16.0); IMMATURE GRAN ABSOLUTE AUTO 0.05 K/mm3 (0.00-0.10); IMMATURE GRAN PERCENT AUTO 1 % (0-1); LYMPHOCYTES ABSOLUTE AUTO 2.58 K/mm3 (0.84-5.20); LYMPHOCYTES PERCENT AUTO 35 % (21-46); MONOCYTES ABSOLUTE AUTO 0.37 K/mm3 (0.16-1.47); MONOCYTES PERCENT AUTO 5 % (4-13); Mean Corpuscular HGB 32.6 pg (26.0-34.0); Mean Corpuscular HGB Conc 30.7 g/dL (31.5-36.5); Mean Corpuscular Volume 106 fL (80-100); Mean Platelet Volume 10.6 fL (9.1-12.4); NEUTROPHILS ABSOLUTE AUTO 4.06 K/mm3 (1.96-9.15); NEUTROPHILS PERCENT AUTO 55 % (41-73); NRBC ABSOLUTE 0.02 K/mm3 (0.00-0.02); NRBC Auto 0.3 /100 WBC (0.0-0.2); Platelet Count 103 K/mm3 (150-400); RDW Coefficient Variation 17.2 % (11.7-14.2); RDW Standard Deviation 66.4 fL (35.1-46.3); Red Blood Cell Count 2.36 M/mm3 (3.80-5.20); White Blood Cell Count 7.34 K/mm3 (4.00-11.30)
[2022-12-21 07:19] LABS: Albumin, Blood 2.2 g/dL (3.4-5.0); Albumin/Globulin Ratio 0.5 (0.8-1.8); Bilirubin, Total 1.1 mg/dL (0.1-1.0); Bun/Creatinine Ratio 51.3 (12.0-20.0); Calcium, Blood 8.6 mg/dL (8.5-10.1); Globulin, Blood 4.7 g/dL (2.2-4.0); Potassium, Blood 4.9 mmol/L (3.5-5.5); Total Protein, Blood 6.9 g/dL (6.4-8.2)
[2022-12-21] MEDS ORDERED: VENL25 PO (07:35)
[2022-12-21] MEDS ORDERED: JUVEN PACKET1 EAC3 PO (07:35)
[2022-12-21] MEDS ORDERED: LAMICTAL25 M1 PO (07:36)
[2022-12-21] MEDS ORDERED: METO25 PO (07:36)
[2022-12-21] MEDS ORDERED: OXYC5 PO (07:37)
[2022-12-21] MEDS ORDERED: ACET325 PO (07:38)
[2022-12-21] MEDS ORDERED: LORA.5 PO (07:39)
[2022-12-21] MEDS ORDERED: ADULT GLYCERIN1 EACH PR (07:39)
[2022-12-21] MEDS ORDERED: SENN187 PO (07:40)
[2022-12-21 07:59] LABS: Influenza A, PCR NEGATIVE (NEGATIVE); Influenza B, PCR NEGATIVE (NEGATIVE); Resp Syncytial Virus, PCR NEGATIVE (NEGATIVE); SARS-Cov-2 (COVID-19) PCR, MMC NEGATIVE (NEGATIVE)
[2022-12-21 14:43] LABS: Base Excess Venous -2.6 mmol/L; Bicarbonate Venous 22.4 mmol/L (24.0-30.0); PCO2 Venous 41.7 mmHg (38-42); pH Blood Venous 7.35 (7.34-7.37)
[2022-12-21 15:30] VITALS: BP 152/79
[2022-12-21 15:39] VITALS: BP 176/92
[2022-12-21] MEDS ORDERED: Promod946 ML PO (17:25)
[2022-12-21] MEDS ORDERED: LAMO25 PO (17:26)
[2022-12-21] MEDS ORDERED: HUMULIN R100 UNIT/2 SC (17:37)
[2022-12-21] MEDS ORDERED: INSULANI SC (17:38)
--- NOTE | 2022-12-21 19:51 | NUR ---
RN/DAY SHIFT SUMMARY REPORT RECIEVED FROM THE ER NURSE PRIOR TO TRANSFER OF CARE. THE PATIENT ARRIVED IN GOOD SPIRIT AND IS PLEASANT AT BEDSIDE. THE ADMITT WAS FINISHED WITH MED REC FINISHED AND ASSESSMENT COMPLETED WITH NO COMPLICATIONS. THERE WERE SEVERAL WOUNDS THAT NEED TO BE DOCUMENTED AND A WOUND CONSULT NEEDS TO BE ORDERED. THE NIGHT NURSE HAS BEEN NOTIFIED VIA NIGHT NURSE ASSUMPTION OF CARE.
[2022-12-21 21:48] VITALS: BP 134/99
[2022-12-21 21:50] VITALS: BP 134/99
[2022-12-21 22:00] VITALS: BP 152/83
[2022-12-22] VITALS (7 sets, daily range): BP systolic 116–181; BP diastolic 54–112
[2022-12-22 04:56] LABS: Hematocrit 21.1 % (33.0-51.0); Hemoglobin 6.5 g/dL (11.5-16.0); Mean Corpuscular HGB Conc 30.8 g/dL (31.5-36.5); Mean Corpuscular Volume 107 fL (80-100); Mean Platelet Volume 10.9 fL (9.1-12.4); Platelet Count 80 K/mm3 (150-400); RDW Coefficient Variation 17.6 % (11.7-14.2); RDW Standard Deviation 67.9 fL (35.1-46.3); Red Blood Cell Count 1.97 M/mm3 (3.80-5.20); White Blood Cell Count 5.94 K/mm3 (4.00-11.30)
[2022-12-22 05:16] LABS: Calcium, Blood 8.4 mg/dL (8.5-10.1); Creatinine, Blood 1.18 mg/dL (0.40-1.00); Potassium, Blood 4.8 mmol/L (3.5-5.5)
--- NOTE | 2022-12-22 07:25 | NUR ---
SHIFT SUMMARY: ALERT, ORIENTED TO SELF ONLY. PLEASANTLY CONFUSED, ABLE TO BE REORIENTED. COOPERATIVE AND ABLE TO FOLLOW DIRECTIONS. AFEBRILE. BP STABLE, SEE RECOREDED VITAL SIGNS. O2 SATS > 92% ON RA, OCCASIONALLY DESATURATES INTO 80'S BUT DOES NOT SUSTAIN. PT BECOMING ANXIOUS AND COMPLAINTING OF SOB, O2 SATS MAINTAINING IN HIGH 90'S. REPOSITIONED WITH SOB RESOLVED. ALSO RESPONDS WELL TO SCHEDULE ANXIETY MEDICATIONS. DENIES ANY CHEST PAIN/PRESSURE. DRESSING CHANGE COMPLETED ON WOUND ON RLE. WOUND PHOTOGRAPHED FOR PT CHARTE. PT TOLERATES DRSG CHANGE WELL. CALL LIGHT IN REACH. BED IN LOW POSITION.
--- NOTE | 2022-12-22 17:48 | NUR ---
RN/DAY SHIFT SUMMARY MORNING SHIFT REPORT RECIEVED WITH ASSUMPTION OF CARE AT THE BEDSIDE WITH THE NIGHT NURSE. THE PATIENT WAS THEN ASSESSED WITH NO NOTIBLE COMPLICATIONS, IT WAS NOTED THAT THE PATIENT SEEMS TO DO BETTER ON A CPAP WITH LESS WORK BREATHING. MEDICATIONS WERE PASSED WITH NO COMPLICATIONS. THE PATIENT RECIEVED 1 UNIT OF PRBC WITH SLIGHT REACTION. THE TRANSFUSION WAS SLOWED DOWN THEN CONTINUED ONCE THE PATIENT DEMONSTRATED REVERSAL OF SYMPTOMS. THE PATIENT CONTINUES TO BE PLEASANTLY CONFUSED BUT REMAINS ANXIOUS AND CALLS OUT REGULARLY. WILL CONTINUE TO MONITOR UNTIL DISTRIBUTION ESTIMATOR ASSUMPTION OF CARE.
--- NOTE | 2022-12-22 20:20 | NUR ---
ASSUMED PT CARE FORM NARESH ZARAGOZA ON . PT ALERT, ORIENTED TO SELF. COOPERATIVE AND PLEASANT, ABLE TO FOLLOW DIRECTIONS. DENIES ANY CHEST PAIN/PRESSURE. HR SR IN THE 90'S. BP STABLE, SEE RECORDED VITAL SIGNS. COMPLAINS OF SOB WHEN LYING FLAT FOR BED CHANGE DUE TO PURE WICK LEAKING. REPOSITIONED AND PLACED BACK ON BIPAP. O2 SATS > 92%. COARSE BREATH SOUNDS THROUGHOUT. WILL MONITOR. CALL LIGHT INREACH. BED IN LOW POSITION.
[2022-12-23] VITALS (8 sets, daily range): BP systolic 130–175; BP diastolic 62–94
[2022-12-23 04:40] LABS: Hematocrit 25.2 % (33.0-51.0); Hemoglobin 8.1 g/dL (11.5-16.0); Mean Corpuscular HGB 32.3 pg (26.0-34.0); Mean Corpuscular HGB Conc 32.1 g/dL (31.5-36.5); Mean Platelet Volume 10.8 fL (9.1-12.4); NRBC ABSOLUTE 0.04 K/mm3 (0.00-0.02); NRBC Auto 0.7 /100 WBC (0.0-0.2); Platelet Count 74 K/mm3 (150-400); RDW Coefficient Variation 20.3 % (11.7-14.2); RDW Standard Deviation 72.4 fL (35.1-46.3); Red Blood Cell Count 2.51 M/mm3 (3.80-5.20); White Blood Cell Count 5.76 K/mm3 (4.00-11.30)
[2022-12-23 04:47] LABS: Bun/Creatinine Ratio 54.1 (12.0-20.0); Calcium, Blood 8.5 mg/dL (8.5-10.1); Creatinine, Blood 1.09 mg/dL (0.40-1.00)
[2022-12-23 05:14] LABS: Mean Corpuscular Volume 100 fL (80-100)
--- NOTE | 2022-12-23 06:10 | NUR ---
SHIFT SUMMARY: NO ACUTE CHANGES NOTED DURING THIS SHIFT. VITAL SIGNS REMAIN STABLE. MIDNIGHT BP ELEVATED BUT DECREASED WITHOUT NEED FOR INTERVENTION. REPOSITION Q2-3H. PUREWICK DRAINING CLEAR, YELLOW URINE WITHOUT DIFFICULTY. DRESSING ON RIGHT LEG C/D/I, NO DRAINAGE NOTED. CMS INTACT. ON BIPAP OVERNIGHT, PT TOLERATED WELL. CALL LIGHT IN REACH. BED IN LOW POSITION.
--- NOTE | 2022-12-23 10:35 | NUR ---
AM NOTE Patient alert, oriented to self. Pt resting in bed. repositioning q2. Pt denies pain, chest pain/pressure, nausea, dizziness and numb/tingling. Tele sinus, bp elevated trending down. Spo2 this am >90% on bipap with 3l bleed in, RT titrated to bibpap with no bleed in, placed on 2l o2 via nc for medications spo2 >90% at this time. Pt reports sob when lying back. Abd soft, nontender, normoactive t/o. Large amount of soft, loose stool noted this am. Other vss. Will continue to monitor.
--- NOTE | 2022-12-23 17:06 | NUR ---
Shift Summary This afternoon pt reports increased sob, audible wheezes noted, work or breathing increased and resp rate increased, pt has increased crackles t/o lung, notified Dr Jackson, new order entered. Placed patient on bipap, administered iv lasix. Increased output this afternoon. Other vss. No other acute changes noted. Will continue to monitor.
--- NOTE | 2022-12-23 22:34 | NUR ---
ASSUMED PT CARE FORM DAYSHIFT RN. A&OX1-2. ABLE TO MAKE NEEDS KNOWN AND FOLLOW DIRECTIONS. PLEASANT AND COOPERATIVE. DENIES ANY CHEST PAIN/PRESSURE. HR IS SR IN 70'S. BP STABLE, SEE RECORDED VITAL SIGNS. REPORTS FEELING SOB THAT HAS NOT CHANGED, O2 SATS > 92% ON 2 LPM WHILE AWAKE AND BIPAP WHILE SLEEPING. AFEBRILE. DENIES NAUSEA. DRESSING ON RIGHT LEG CHANGED, PT TOLERATED WITHOUT PAIN. LEFT RESTING IN BED WATCHING TV. CALL LIGHT IN REACH. BED ALARM ON.
[2022-12-24 00:07] VITALS: BP 165/84
[2022-12-24 05:02] VITALS: BP 170/84
[2022-12-24 06:28] LABS: Bun/Creatinine Ratio 45.7 (12.0-20.0); Calcium, Blood 8.7 mg/dL (8.5-10.1); Creatinine, Blood 1.05 mg/dL (0.40-1.00); Potassium, Blood 3.4 mmol/L (3.5-5.5)
--- NOTE | 2022-12-24 06:45 | NUR ---
SHIFT SUMMARY: NO ACUTE CHANGES NOTED THROUGHOUT THE NIGHT. BIPAP APPLIED THROUGHOUT MAJORITY OF SHIFT WHILE SLEEPING, PT TOLERATED WELL. NO COMPLAINTS OF SOB. MOUTH SWABS AND CARE PROVIDED FOR PT COMFORT PERIOTICALLY. CALL LIGHT IN REACH. BED IN LOW POSITION.
[2022-12-24 07:14] VITALS: BP 180/88
[2022-12-24 08:41] LABS: Hematocrit 25.3 % (33.0-51.0); Hemoglobin 7.7 g/dL (11.5-16.0)
--- NOTE | 2022-12-24 11:23 | NUR ---
INITIAL ASSESSMENT: Patient is on her C-Pap when staff were performing bedside shift report. When asked, she states she would like a break from the C-Pap-she is placed on 2l O2 via NC. She is alert to self and location, she is able to tell me the year, but thinks the month is October. She denies pain at this time. She denies N/T, CHEIKH, manufacturing engineer paint equal, she is able to push down on my hand with her right foot but not pull up. HRR, SR with PACs in the 80s. LS with some crackles noted in the bases, Biox is 99% on 2L via NC, titrated down to 1l. BT+, pt states she had a BM yesterday. PPP. She has a dressing with Kerlex to her RLE, CDI, wound consult is in. Blood pressure is slightly elevated this morning, will give AM medications and reassess. Patient assisted OOB to the recliner with a 2PA, FWW, and gait belt. PT was able to take a few steps to sit in the recliner. Call light in reach.
[2022-12-24 12:50] VITALS: BP 155/71
--- NOTE | 2022-12-24 16:15 | NUR ---
UPdate: Matilda ZARAGOZA from wound care at bedside. Wounds to her right moore and calf look much better thant the original photos. air conditioning mechanic ordered meta honey and redressed wounds. VSS. Patient has been resting comfortably in bed, bed alarm on. Patient denies other needs at this time. Call light in reach.
--- NOTE | 2022-12-24 16:18 | NUR ---
WOUND CARE RLE CLEANSED WITH NS TARAHNEY TO WOUND BED, COVERED WITH ABD/ROLLED GAUZE. DIL REPORTS PT TO DISCHARGE BACK TO SNF TOMORROW WITH NEW PT APPT AT WOUND CLINIC . DRESSING SHOULD NOT BE CHANGED UNTIL THAT TIME. CARMEN RN WILL FOLLOW
--- NOTE | 2022-12-24 18:30 | NUR ---
Summary: Patient has been alert to self, place, and year. She has not C/O any pain T/O the shift. HRR, SR with PACs in the 70s-80s. LS with crackles in the bases, biox was high 90s on 1-2l, pt did desaturate when working with PT, but otherwise did well during the shift. BT+. PPP. Pt has wound to her right moore and back of calf, improving well-dressing chnaged by environmental services attendant. Patient was able to get OOB to the chair with a FWW and a gait belt. She had noted right foot drop, after talking with the daughter it sounds like this has been on ongoing problem from quite some time. No acute changes this shift. Report given to Marylin ZARAGOZA.
[2022-12-24 20:45] VITALS: BP 130/61
[2022-12-25 00:09] VITALS: BP 113/62
[2022-12-25 03:42] VITALS: BP 135/91
[2022-12-25 04:15] LABS: Hematocrit 25.5 % (33.0-51.0)
[2022-12-25 04:54] LABS: Calcium, Blood 8.3 mg/dL (8.5-10.1); Creatinine, Blood 1.04 mg/dL (0.40-1.00); Potassium, Blood 3.8 mmol/L (3.5-5.5)
--- NOTE | 2022-12-25 06:32 | NUR ---
SHIFT SUMMARY PATIENT ALERT AND ORIENTED X2. PLEASANTLY CONFUSED AND COOPERATIVE WITH CARE. PATIENT ON 1-2 LITERS O2 VIA NC WHILE AWAKE AND ON BIPAP WHILE SLEEPING, SHE DENIES SHORTNESS OF BREATH. VITAL SIGNS STABLE, NO COMPLAINTS OF CHEST PAIN. NO ACUTE ISSUES NOTED OVERNIGHT. WILL CONTINUE TO MONITOR. CALL LIGHT WITHIN REACH.
[2022-12-25 08:46] VITALS: BP 128/66
[2022-12-25 17:40] VITALS: BP 156/84
--- NOTE | 2022-12-25 18:52 | NUR ---
SHIFT SUMMARY: PATIENT DENIED PAIN OR DISCOMFORT THROUGHOUT THE SHIFT UNLESS BEING REPOSITIONED. PATIENT DENIED SHORTNESS OF BREATH OR DIFFICULTY BREATHING. PATIENT ON 1L VA NC DURING THE DAY. PATIENT HAS BEEN UTILIZING A BIPAP HERE IN THE HOSPITAL WHEN ASLEEP. NO RESPIRATORY DISTRESS, SHORTNESS OF BREATH OR DIFFICULTY BREATHING NOTED DURING THE DAY. SPO2 97-98%. PATIENT UP TO THE CHAIR FOR THE FIRST HALF OF THE DAY. PATIENT WAS A TWO PERSON ASSIST FOR TRANSFERS WITH A GAIT BELT AND FWW. PATIENT FOLLOWING DIRECTIONS. ALERT AND ORIENTED X2. PATIENT HAS AN ADEQUATE TO EXCELLENT APPETITE. PATIENT HAS BEEN REQUIRING STAFF ASSISTANCE TO EAT. NOTED SEEPING ON RIGHT LEG DRESSING. PER NOTE FROM GABRIELLA, COTTON CHOPPER, LEFT THE DRESSING INTACT AND REINFORCED.
[2022-12-25 19:52] VITALS: BP 151/77
[2022-12-25 22:15] VITALS: BP 146/77
--- NOTE | 2022-12-26 03:34 | NUR ---
SHIFT SUMMARY. PT ARRIVED ON UNIT FROM PCU EARLY THIS MORNING. BEDREST. PUREE DIET WITH NECTAR THICK FLUIDS, NO STRAWS. AOX2. PLEASANT AND COOPERATIVE WITH CARE BUT SOMEWHAT ANXIOUS. WAS WEARING 1 L O2 VIA NC BEFORE PUTTING ON CPAP FOR NIGHT WHICH HAS 2 L OF BLEED IN. NO COMPLAINTS OF PAIN THIS SHIFT. SATTING WELL ON CPAP PER CONTINUOUS PULSE OX WHICH REMAINS IN PLACE. TRANSFER VITALS WERE UNREMARKABLE. PUREWICK IN PLACE AND FUNCTIONING WELL. PT HAS NOT YET USED CALL LIGHT BUT IS ABLE TO MAKE NEEDS KNOWN. HAS SLEPT THROUGH MOST OF SHIFT AFTER HAVING CPAP PUT IN PLACE. BED ALARM ON. BED LOCKED IN LOWEST POSITION. CALL LIGHT LEFT WITHIN REACH.
[2022-12-26 04:23] VITALS: BP 141/66
[2022-12-26 05:05] LABS: Calcium, Blood 7.9 mg/dL (8.5-10.1); Creatinine, Blood 1.14 mg/dL (0.40-1.00); Potassium, Blood 3.8 mmol/L (3.5-5.5)
[2022-12-26 07:43] VITALS: BP 135/66
--- NOTE | 2022-12-26 08:21 | NUR ---
SPOKE WITH DAUGHTER IN LAW. SHE EXPRESSED CONCERN THAT PT WAS TRANSFERED TO MED FLOOR AND WAS NOT TOLD. SHE WANTED TO KNOW IF WOUND CARE WOULD CONTINUE SEEING PATIENT SHE WAS SUPPOSED TO HAVE HAD A SCHEDULED WOUND CARE APPOINTMENT TODAY. REFERED TO MILA QUIROZ WC NOTE. INFORMED DAUGHTER IN LAW THAT GABRIELLA, WOULD CONTINUE TO FOLLOW UP WITH PT AND OUTPATIENT WC WOULD BE SCEDULED NEEDED AFTER DISCHARGE. I WILL FOLLOW UP WITH MILA QUIROZ AND STAY IN TOUCH WITH DAUGHTER IN LAW, RICCARDO.
[2022-12-26 11:58] LABS: SARS-Cov-2 (COVID-19) PCR, MMC NEGATIVE (NEGATIVE)
[2022-12-26] MEDS ORDERED: LEVSOD100 PO (12:06)
[2022-12-26] MEDS ORDERED: TORSE20 PO (12:07)
--- NOTE | 2022-12-26 16:09 | NUR ---
PT DISCHARGED TO FACILITY. ATTEMPTED TO GIVE REPORT TO RECEIVING NURSE 3X HOWEVER NO ONE ANSWERED AFTER TRANSFER FROM BRIM PRESSER. PT IS ALERT AND ORIENTED X2-3. CALM AND KIND. 2 PERSON ASSIST WITH FWW AND GAIT BELT STAND, PIVOT, SIT IN WHEEL CHAIR. PT WAS VERY WEAK.
== END 2022-12-26 14:23 | DRG 871 ==
LOC: ER 06:42 → ERHOLD 06:43 → MEDS 10:16 → PCU 10:16 → MEDS 12-25 22:09
PROVIDERS: Emergency Medicine; Internal Medicine; ADMIT Internal Medicine
PROC: 5A09357 Assistance with Respiratory Ventilation, Less than 24 Consecutive Hours, Continuous Positive Airway Pressure (ICD-10-PCS; principal; 2022-12-21)
PROC: 3E03329 Introduction of Other Anti-infective into Peripheral Vein, Percutaneous Approach (ICD-10-PCS; 2022-12-21)
PROC: 30233N1 Transfusion of Nonautologous Red Blood Cells into Peripheral Vein, Percutaneous Approach (ICD-10-PCS; 2022-12-22)
DX: A41.9 Sepsis, unspecified organism (principal); I50.33 Acute on chronic diastolic (congestive) heart failure; J96.01 Acute respiratory failure with hypoxia; J18.9 Pneumonia, unspecified organism; E87.20 Acidosis, unspecified; D64.9 Anemia, unspecified; Z66 Do not resuscitate; Z20.822 Contact with and (suspected) exposure to COVID-19; D69.6 Thrombocytopenia, unspecified; G47.33 Obstructive sleep apnea (adult) (pediatric); J45.909 Unspecified asthma, uncomplicated; I11.0 Hypertensive heart disease with heart failure; F03.90 Unspecified dementia, unspecified severity, without behavioral disturbance, psychotic disturbance, mood disturbance, and anxiety; E03.9 Hypothyroidism, unspecified; F32.A Depression, unspecified; E11.40 Type 2 diabetes mellitus with diabetic neuropathy, unspecified; F41.9 Anxiety disorder, unspecified; M48.00 Spinal stenosis, site unspecified; I34.0 Nonrheumatic mitral (valve) insufficiency; M19.90 Unspecified osteoarthritis, unspecified site; K74.60 Unspecified cirrhosis of liver; Z96.641 Presence of right artificial hip joint; Z96.653 Presence of artificial knee joint, bilateral; Z88.8 Allergy status to other drugs, medicaments and biological substances; Z79.890 Hormone replacement therapy; Z79.4 Long term (current) use of insulin; Z79.899 Other long term (current) drug therapy; Z90.710 Acquired absence of both cervix and uterus; Z87.39 Personal history of other diseases of the musculoskeletal system and connective tissue; Z98.890 Other specified postprocedural states
CPT/HCPCS: 0241U; 36415; 71045; 80048; 80053; 82803; 82947; 83605; 83880; 84145; 84443; 84484; 85014; 85018; 85025; 85027; 86850; 86900; 86901; 86923; 87040; 92526; 92610; 93005; 93010; 93308; 93321; 94644; 94660; 94664; 94760; 94762; 96365; 96366; 96367; 96375; 97110; 97161; 97530; 99285-25; A9270; J0456; J0696; J1650; J1815; J1940; J2930; J3480; J7040; J7050; P9016; U0002

== ENCOUNTER 2022-12-30 01:04 | Day surgery (SDC) | payer MEDICARE, BC ==
[~2022-12-30 01:04] MED LIST changes: +ACET325 PO; +ADULT GLYCERIN1 EACH PR; +HUMULIN R100 UNIT/2 SC; +INSULANI SC; +JUVEN PACKET1 EAC3 PO; +LAMICTAL25 M1 PO; +LAMO25 PO; +LORA.5 PO; +METO25 PO; +OXYC5 PO; +Promod946 ML PO; +SENN187 PO; +TORSE20 PO; +VENL25 PO
== END 2022-12-30 22:48 | disposition home or self-care (01) ==
LOC: WOUND 01:04
DX: L97.212 Non-pressure chronic ulcer of right calf with fat layer exposed (principal); L89.612 Pressure ulcer of right heel, stage 2; E11.21 Type 2 diabetes mellitus with diabetic nephropathy; I10 Essential (primary) hypertension; K74.69 Other cirrhosis of liver; Z79.4 Long term (current) use of insulin; G47.30 Sleep apnea, unspecified; I12.0 Hypertensive chronic kidney disease with stage 5 chronic kidney disease or end stage renal disease; N18.6 End stage renal disease; E11.22 Type 2 diabetes mellitus with diabetic chronic kidney disease
CPT/HCPCS: G0463

== ENCOUNTER 2023-01-06 01:49 | Day surgery (SDC) | payer MEDICARE, BC | END 2023-01-06 22:58 | disposition home or self-care (01) | LOC: WOUND 01:49 | DX: L89.612 Pressure ulcer of right heel, stage 2 (principal); L97.212 Non-pressure chronic ulcer of right calf with fat layer exposed; E11.21 Type 2 diabetes mellitus with diabetic nephropathy; E11.65 Type 2 diabetes mellitus with hyperglycemia; E11.622 Type 2 diabetes mellitus with other skin ulcer; Z79.4 Long term (current) use of insulin; I10 Essential (primary) hypertension; K74.69 Other cirrhosis of liver ==

== ENCOUNTER 2023-01-20 00:32 | Day surgery (SDC) | payer MEDICARE, BC | END 2023-01-20 22:59 | disposition home or self-care (01) | LOC: WOUND 00:32 | DX: E11.622 Type 2 diabetes mellitus with other skin ulcer (principal); L97.212 Non-pressure chronic ulcer of right calf with fat layer exposed; L89.612 Pressure ulcer of right heel, stage 2; E11.21 Type 2 diabetes mellitus with diabetic nephropathy; E11.65 Type 2 diabetes mellitus with hyperglycemia; I10 Essential (primary) hypertension; K74.69 Other cirrhosis of liver; Z79.4 Long term (current) use of insulin | CPT/HCPCS: G0463 ==

== ENCOUNTER 2023-01-29 02:33 | Day surgery (SDC) | payer MEDICARE, BC | END 2023-01-29 23:21 | disposition home or self-care (01) | LOC: WOUND 02:33 | DX: L03.115 Cellulitis of right lower limb (principal); L89.612 Pressure ulcer of right heel, stage 2; L97.212 Non-pressure chronic ulcer of right calf with fat layer exposed; E11.65 Type 2 diabetes mellitus with hyperglycemia; Z79.4 Long term (current) use of insulin; I10 Essential (primary) hypertension; K74.69 Other cirrhosis of liver | CPT/HCPCS: G0463 ==

== ENCOUNTER 2023-02-05 05:16 | Day surgery (SDC) | payer MEDICARE, BC | END 2023-02-05 23:06 | disposition home or self-care (01) | LOC: WOUND 05:16 | DX: L89.612 Pressure ulcer of right heel, stage 2 (principal); L03.115 Cellulitis of right lower limb; E11.622 Type 2 diabetes mellitus with other skin ulcer; L97.212 Non-pressure chronic ulcer of right calf with fat layer exposed; K74.60 Unspecified cirrhosis of liver; I10 Essential (primary) hypertension; Z79.4 Long term (current) use of insulin; E11.65 Type 2 diabetes mellitus with hyperglycemia; E11.21 Type 2 diabetes mellitus with diabetic nephropathy; M77.31 Calcaneal spur, right foot; M19.071 Primary osteoarthritis, right ankle and foot | CPT/HCPCS: 73630; 73650; A9270; G0463 ==

== ENCOUNTER 2023-02-12 02:41 | Day surgery (SDC) | payer MEDICARE, BC | END 2023-02-12 22:50 | disposition home or self-care (01) | LOC: WOUND 02:41 | DX: L03.115 Cellulitis of right lower limb (principal); L89.612 Pressure ulcer of right heel, stage 2; L97.212 Non-pressure chronic ulcer of right calf with fat layer exposed; E11.21 Type 2 diabetes mellitus with diabetic nephropathy; E11.65 Type 2 diabetes mellitus with hyperglycemia; I10 Essential (primary) hypertension; K74.69 Other cirrhosis of liver; E03.9 Hypothyroidism, unspecified; E78.5 Hyperlipidemia, unspecified | CPT/HCPCS: 36415; 80048; 80076; 84443; A9270; G0463 ==

== ENCOUNTER 2023-02-19 04:51 | Day surgery (SDC) | payer MEDICARE, BC | END 2023-02-19 23:15 | disposition home or self-care (01) | LOC: WOUND 04:51 | DX: L03.115 Cellulitis of right lower limb (principal); L97.212 Non-pressure chronic ulcer of right calf with fat layer exposed; L89.612 Pressure ulcer of right heel, stage 2; E11.21 Type 2 diabetes mellitus with diabetic nephropathy; E11.65 Type 2 diabetes mellitus with hyperglycemia; I10 Essential (primary) hypertension; K74.69 Other cirrhosis of liver; Z79.4 Long term (current) use of insulin | CPT/HCPCS: A9270; G0463 ==

== ENCOUNTER 2023-02-26 02:04 | Day surgery (SDC) | payer MEDICARE, BC | END 2023-02-26 22:53 | disposition home or self-care (01) | LOC: WOUND 02:04 | DX: E11.622 Type 2 diabetes mellitus with other skin ulcer (principal); L97.212 Non-pressure chronic ulcer of right calf with fat layer exposed; L03.115 Cellulitis of right lower limb; L89.612 Pressure ulcer of right heel, stage 2; K74.60 Unspecified cirrhosis of liver; I10 Essential (primary) hypertension; E11.65 Type 2 diabetes mellitus with hyperglycemia; E11.21 Type 2 diabetes mellitus with diabetic nephropathy; Z79.4 Long term (current) use of insulin | CPT/HCPCS: A9270; G0463 ==

== ENCOUNTER → 2023-02-28 | Outpatient (CLI) | payer MEDICARE, BC ==
[2023-02-28 13:48] LABS: Source, Urine Foley catheter
[2023-02-28 14:34] LABS: Appearance, Urine Hazy (Clear); Bilirubin, Urine Neg (Neg); Blood, Urine 4+ (Neg); Glucose Qualitative, Urine Neg (Neg); Ketones, Urine Neg (Neg); Leukocyte Esterase, Urine 3+ (Neg); Nitrite, Urine Pos (Neg); Protein, Urine 2+ (Neg); Specific Gravity, Urine 1.015 (1.003-1.022); Urobilinogen, Urine NORM (Normal)
[2023-02-28 14:55] LABS: Color, Urine Pale Yellow (P-Yellow)
[2023-02-28 14:59] LABS: Amorphous Light (0-Heavy); Bacteria Many /hpf; Mucus Light (0-Heavy); Squamous Epithelial Cells Few /hpf (Few)
== END | disposition home or self-care (01) ==
LOC: LAB 13:46 → LAB SHORT 13:46
PROVIDERS: Internal Medicine
DX: R30.0 Dysuria (principal); R41.0 Disorientation, unspecified
CPT/HCPCS: 81001; 87077; 87086; 87186

== ENCOUNTER 2023-03-05 06:16 | Day surgery (SDC) | payer MEDICARE, BC | END 2023-03-05 22:59 | disposition home or self-care (01) | LOC: WOUND 06:16 | DX: L03.115 Cellulitis of right lower limb (principal); K74.60 Unspecified cirrhosis of liver; L89.612 Pressure ulcer of right heel, stage 2; E11.21 Type 2 diabetes mellitus with diabetic nephropathy; E11.65 Type 2 diabetes mellitus with hyperglycemia; I10 Essential (primary) hypertension; Z79.4 Long term (current) use of insulin | CPT/HCPCS: A9270; G0463 ==

== ENCOUNTER 2023-03-12 02:32 | Day surgery (SDC) | payer MEDICARE, BC | END 2023-03-12 22:47 | disposition home or self-care (01) | LOC: WOUND 02:32 | DX: L03.115 Cellulitis of right lower limb (principal); K74.60 Unspecified cirrhosis of liver; L97.212 Non-pressure chronic ulcer of right calf with fat layer exposed; L89.612 Pressure ulcer of right heel, stage 2; E11.21 Type 2 diabetes mellitus with diabetic nephropathy; E11.65 Type 2 diabetes mellitus with hyperglycemia; Z79.4 Long term (current) use of insulin; I10 Essential (primary) hypertension | CPT/HCPCS: G0463 ==

== ENCOUNTER 2023-03-19 01:54 | Day surgery (SDC) | payer MEDICARE, BC | END 2023-03-19 22:36 | disposition home or self-care (01) | LOC: WOUND 01:54 | DX: L03.115 Cellulitis of right lower limb (principal); K74.60 Unspecified cirrhosis of liver; L97.212 Non-pressure chronic ulcer of right calf with fat layer exposed; L89.612 Pressure ulcer of right heel, stage 2; E11.21 Type 2 diabetes mellitus with diabetic nephropathy; E11.622 Type 2 diabetes mellitus with other skin ulcer; E11.65 Type 2 diabetes mellitus with hyperglycemia; Z79.4 Long term (current) use of insulin; I10 Essential (primary) hypertension | CPT/HCPCS: G0463 ==

== ENCOUNTER 2023-03-26 08:00 | Day surgery (SDC) | payer MEDICARE, BC | END 2023-03-26 23:59 | disposition home or self-care (01) | LOC: WOUND 08:00 | DX: S89.91XD Unspecified injury of right lower leg, subsequent encounter (principal); K74.60 Unspecified cirrhosis of liver; L97.212 Non-pressure chronic ulcer of right calf with fat layer exposed; L89.612 Pressure ulcer of right heel, stage 2; E11.21 Type 2 diabetes mellitus with diabetic nephropathy; E11.65 Type 2 diabetes mellitus with hyperglycemia; I10 Essential (primary) hypertension; Z79.4 Long term (current) use of insulin; X58.XXXD Exposure to other specified factors, subsequent encounter | CPT/HCPCS: G0463 ==

== ENCOUNTER 2023-04-02 03:24 | Day surgery (SDC) | payer MEDICARE, BC | END 2023-04-02 22:53 | disposition home or self-care (01) | LOC: WOUND 03:24 | DX: L89.612 Pressure ulcer of right heel, stage 2 (principal); L97.212 Non-pressure chronic ulcer of right calf with fat layer exposed; E11.21 Type 2 diabetes mellitus with diabetic nephropathy; E11.65 Type 2 diabetes mellitus with hyperglycemia; I10 Essential (primary) hypertension; K74.69 Other cirrhosis of liver | CPT/HCPCS: G0463 ==

== ENCOUNTER 2023-04-09 00:58 | Day surgery (SDC) | payer MEDICARE, BC | END 2023-04-09 22:50 | disposition home or self-care (01) | LOC: WOUND 00:58 | DX: S89.91XA Unspecified injury of right lower leg, initial encounter (principal); K74.60 Unspecified cirrhosis of liver; E11.622 Type 2 diabetes mellitus with other skin ulcer; L97.212 Non-pressure chronic ulcer of right calf with fat layer exposed; L89.612 Pressure ulcer of right heel, stage 2; E11.21 Type 2 diabetes mellitus with diabetic nephropathy; E11.65 Type 2 diabetes mellitus with hyperglycemia; I10 Essential (primary) hypertension; Z79.4 Long term (current) use of insulin; X58.XXXA Exposure to other specified factors, initial encounter | CPT/HCPCS: G0463 ==

== ENCOUNTER 2023-04-16 05:18 | Day surgery (SDC) | payer MEDICARE, BC | END 2023-04-16 22:53 | disposition home or self-care (01) | LOC: WOUND 05:18 | DX: E11.622 Type 2 diabetes mellitus with other skin ulcer (principal); L89.612 Pressure ulcer of right heel, stage 2; E11.65 Type 2 diabetes mellitus with hyperglycemia; E11.21 Type 2 diabetes mellitus with diabetic nephropathy; Z79.4 Long term (current) use of insulin; I10 Essential (primary) hypertension; K74.69 Other cirrhosis of liver | CPT/HCPCS: G0463 ==

== ENCOUNTER 2025-04-19 12:15 | Day surgery (SDC) | payer MEDICARE, BC ==
[2025-04-19] MEDS ORDERED: Lidocaine HCl 4% Cream 5 GM ONE (12:29)
== END 2025-04-19 23:00 | disposition home or self-care (01) ==
LOC: WOUND 12:15
DX: E11.621 Type 2 diabetes mellitus with foot ulcer (principal); L97.511 Non-pressure chronic ulcer of other part of right foot limited to breakdown of skin; E11.51 Type 2 diabetes mellitus with diabetic peripheral angiopathy without gangrene; I87.2 Venous insufficiency (chronic) (peripheral); E11.40 Type 2 diabetes mellitus with diabetic neuropathy, unspecified; I10 Essential (primary) hypertension; F03.90 Unspecified dementia, unspecified severity, without behavioral disturbance, psychotic disturbance, mood disturbance, and anxiety; F31.9 Bipolar disorder, unspecified; Z79.4 Long term (current) use of insulin; Z79.84 Long term (current) use of oral hypoglycemic drugs
CPT/HCPCS: A9270; G0463